=== PATIENT | female | born 1995 | race Caucasian/White ===

== ENCOUNTER → 2017-12-21 13:30 | Outpatient (CLI) | payer OTHER, SELFPAY ==
[2017-12-21 16:19] LABS: Chlamydia Trachomatis by PCR Negative (Negative); Neisserai gonorrhoeae by PCR Negative (Negative); Probe Check PASS; Sample Adequacy Control PASS; Specimen Processing Control PASS
== END ==
PROVIDERS: Visit Provider Obstetrics & Gynecology
DX: Z11.3 Encounter for screening for infections with a predominantly sexual mode of transmission (principal)
CPT/HCPCS: 87491; 87591

== ENCOUNTER → 2018-11-21 11:51 | Outpatient (CLI) | payer BC, SELFPAY ==
[2018-11-23 16:56] LABS: HPV Reflexed? NOT INDICATED
== END ==
PROVIDERS: PCP Family Medicine; Visit Provider Obstetrics & Gynecology
DX: Z12.4 Encounter for screening for malignant neoplasm of cervix (principal)
CPT/HCPCS: 88175; G0145

== ENCOUNTER → 2020-08-17 12:18 | Outpatient (CLI) | payer BC, SELFPAY ==
--- NOTE | 2020-08-17 12:23 | US_ITS ---
STUDY: RENAL ULTRASOUND - COMPLETE REASON FOR EXAM: Female, 25 years old. Recurrent UTIs. TECHNIQUE: Ultrasound evaluation of the kidneys was performed with real-time and static hester-scale imaging. COMPARISON: None. FINDINGS: RIGHT KIDNEY: Normal location of the right kidney, which is normal in size. The right kidney measures 11.6 cm. There is a normal cortex of the right kidney. The renal cortex measures 1.3 cm. There is no right renal mass or cyst. There are no right renal calculi. There is no right hydronephrosis. DISTAL RIGHT URETER: There is non-visualization of the distal right ureter. There is no demonstrated right ureterovesical junction calculus. There is a visualized right ureteral jet. LEFT KIDNEY: Normal location of the left kidney, which is mildly enlarged in size. The left kidney measures 12.3 cm. There is a normal cortex of the left kidney. The renal cortex measures 1.4 cm. There is no left renal mass or cyst. There are no left renal calculi. There is no left hydronephrosis. DISTAL LEFT URETER: There is non-visualization of the distal left ureter. There is no demonstrated left ureterovesical junction calculus. There is a visualized left ureteral jet. BLADDER: The distended urinary bladder has a volume of 365.5 ml. . There is a normal wall thickness of the distended urinary bladder. There are a ill-defined echogenic foci within the bladder lumen. Suggestive of debris. Possibility of blood products within the lumen cannot be ruled out. There are no demonstrated bladder calculi. US/Kidney and Bladder IMPRESSION: 1. Normal ultrasound of the kidneys. 2. Foreign bodies within the urinary bladder lumen. Question blood were other proteinaceous material. Electronically Signed: Boston Osorio DO at 22:43 EST Tel [phone], Service support ,
== END ==
PROVIDERS: Referring Provider Urology; Visit Provider Urology
DX: N39.0 Urinary tract infection, site not specified (principal)
CPT/HCPCS: 76770